=== PATIENT | female | born 1950 | race Caucasian/White ===

== ENCOUNTER 2020-09-21 12:21 | Emergency (ER) | payer MEDICARE, BC ==
--- NOTE | 2020-09-21 12:53 | EDM.PDOC ---
ED HPI GENERAL MEDICAL PROBLEM - General Chief Complaint: Respiratory Problem Stated Complaint: CHEST PAIN Time Seen by Provider: 09/21/20 12:53 Source of Information: Reports: Patient History Limitations: Reports: No Limitations - History of Present Illness INITIAL COMMENTS - FREE TEXT/NARRATIVE: pt gives a 10 day history of mild rt chest discomfort wioth deep breathing only in the am. Today she got up and the pain was persistent with deep breathing. She has no left sided opain. t Onset: Gradual Duration: Day(s): Location: Reports: Chest Associated Symptoms: Reports: Chest Pain, Other (pain with deep breathing. ) - Related Data Allergies Allergy/AdvReac Type Severity Reaction Status Date / Time No Known Allergies Allergy Verified 09/21/20 12:33 Home Meds: Home Meds Furosemide 1 tab PO DAILY 09/21/20 [History] Venlafaxine HCl [Venlafaxine ER] 1 tab PO BEDTIME 09/21/20 [History] hydroCHLOROthiazide [Hydrochlorothiazide] 1 tab PO DAILY 09/21/20 [History] Past Medical History Cardiovascular History: Reports: Hypertension Social & Family History - Tobacco Use Tobacco Use Status *Q: Never Tobacco User ED ROS GENERAL - Review of Systems Review Of Systems: See Below Constitutional: Reports: No Symptoms HEENT: Reports: No Symptoms Respiratory: Reports: Pleuritic Chest Pain Cardiovascular: Reports: No Symptoms Endocrine: Reports: No Symptoms GI/Abdominal: Reports: No Symptoms : Reports: No Symptoms Musculoskeletal: Reports: Other (pain in left chest. ) Skin: Reports: No Symptoms ED EXAM, GENERAL - Physical Exam Exam: See Below Free Text/Narrative:: pt arrived with persistent rt sided pain with deep breathing. Exam Limited By: No Limitations General Appearance: Alert, Anxious Ears: Normal TMs Nose: Normal Inspection Throat/Mouth: Normal Inspection Head: Atraumatic Neck: Normal Inspection Respiratory/Chest: Splinting, Other (pt hurts with deep breathing. She is also tender in the intercostal muscles. ) Cardiovascular: Regular Rate, Rhythm GI/Abdominal: Soft, Non-Tender (Female) Exam: Deferred Rectal (Female) Exam: Deferred Back Exam: Normal Inspection Extremities: Normal Inspection Neurological: Alert, Oriented, Normal Cognition Psychiatric: Anxious Course - Vital Signs Last Recorded V/S: Last Vital Signs Temp 37.5 C 09/21/20 12:42 Pulse 94 09/21/20 12:42 Resp 14 09/21/20 12:42 BP 139/84 09/21/20 12:42 Pulse Ox 96 09/21/20 12:42 - Orders/Labs/Meds Orders: Active Orders 24 hr Category Date Time Status Chest 2V [CR] Stat Exams 09/21/20 12:52 Taken Labs: Laboratory Tests 09/21/20 09/21/20 09/21/20 Range/Units 12:56 12:56 13:23 WBC 6.6 (4.5-11.0) K/uL RBC 5.31 (3.30-5.50) M/uL Hgb 15.7 H (12.0-15.0) g/dL Hct 46.3 (36.0-48.0) % MCV 87 (80-98) fL MCH 30 (27-31) pg MCHC 34 (32-36) % Plt Count 257 (150-400) K/uL Neut % (Auto) 59 (36-66) % Lymph % (Auto) 29 (24-44) % [place] % (Auto) 10 H (2-6) % Eos % (Auto) 1 L (2-4) % Baso % (Auto) 1 (0-1) % D-Dimer, Quantitative (0.0-500.0) ng/mL Sodium 140 (140-148) mmol/L Potassium 3.6 (3.6-5.2) mmol/L Chloride 101 (100-108) mmol/L Carbon Dioxide 26 (21-32) mmol/L Anion Gap 13.1 (5.0-14.0) mmol/L BUN 12 (7-18) mg/dL Creatinine 1.0 (0.6-1.0) mg/dL Est Cr Clr Drug Dosing 41.40 mL/min Estimated GFR (MDRD) 55 L (>60) Glucose 96 (74-106) mg/dL Calcium 9.4 (8.5-10.1) mg/dL Total Bilirubin 0.8 (0.2-1.0) mg/dL AST 17 (15-37) U/L ALT 22 (12-78) U/L Alkaline Phosphatase 70 (46-116) U/L C-Reactive Protein < 0.05 (0.0-0.3) mg/dL Total Protein 7.3 (6.4-8.2) g/dL Albumin 3.7 (3.4-5.0) g/dL Globulin 3.6 H (2.3-3.5) g/dL Albumin/Globulin Ratio 1.0 L (1.2-2.2) 09/21/20 Range/Units 13:24 WBC (4.5-11.0) K/uL RBC (3.30-5.50) M/uL Hgb (12.0-15.0) g/dL Hct (36.0-48.0) % MCV (80-98) fL MCH (27-31) pg MCHC (32-36) % Plt Count (150-400) K/uL Neut % (Auto) (36-66) % Lymph % (Auto) (24-44) % [place] % (Auto) (2-6) % Eos % (Auto) (2-4) % Baso % (Auto) (0-1) % D-Dimer, Quantitative 176.80 (0.0-500.0) ng/mL Sodium (140-148) mmol/L Potassium (3.6-5.2) mmol/L Chloride (100-108) mmol/L Carbon Dioxide (21-32) mmol/L Anion Gap (5.0-14.0) mmol/L BUN (7-18) mg/dL Creatinine (0.6-1.0) mg/dL Est Cr Clr Drug Dosing mL/min Estimated GFR (MDRD) (>60) Glucose (74-106) mg/dL Calcium (8.5-10.1) mg/dL Total Bilirubin (0.2-1.0) mg/dL AST (15-37) U/L ALT (12-78) U/L Alkaline Phosphatase (46-116) U/L C-Reactive Protein (0.0-0.3) mg/dL Total Protein (6.4-8.2) g/dL Albumin (3.4-5.0) g/dL Globulin (2.3-3.5) g/dL Albumin/Globulin Ratio (1.2-2.2) Meds: Medications Discontinued Medications Generic Name Dose Route Start Last Admin Trade Name Freq PRN Reason Stop Dose Admin Ketorolac Tromethamine 60 mg 09/21/20 13:24 09/21/20 13:34 Toradol IM 09/21/20 13:25 60 mg ONETIME ONE Administration - Re-Assessments/Exams Free Text/Narrative Re-Assessment/Exam: 09/21/20 14:01 pt had a normal chest xray, normal ddimer and normal labs. Departure - Departure Time of Disposition: 13:55 Disposition: Home, Self-Care 01 Condition: Fair Clinical Impression: Pleuritic chest pain - Discharge Information Referrals: Zack Medrano MD [Primary Care Provider] - Forms: ED Department Discharge Care Plan Goals: moist heat to the rt chest, tylenol as needed for pain, motrin 600mg tid. If persitent pain see Dr Anand. Sepsis Event Note (ED) - Evaluation Sepsis Screening Result: No Definite Risk - Focused Exam Vital Signs: Vital Signs Temp Pulse Resp BP Pulse Ox 09/21/20 12:42 37.5 C 94 14 139/84 96 - My Orders Last 24 Hours: My Active Orders 09/21/20 12:52 Chest 2V [CR] Stat - Assessment/Plan Last 24 Hours: My Active Orders 09/21/20 12:52 Chest 2V [CR] Stat
[2020-09-21] MEDS ORDERED: Ketorolac 60 MG/2 ML SDV IM ONE (13:24)
--- NOTE | 2020-09-24 10:26 | CR ---
CHEST: 2 view CLINICAL HISTORY:Right chest pain COMPARISON:None FINDINGS: The heart size, pulmonary vascularity and hilar structures are normal. No infiltrate effusion or pneumothorax is seen. IMPRESSION: No acute cardiopulmonary process.
== END 2020-09-21 15:00 | disposition home or self-care (01) ==
LOC: JP.ED 12:21
DX: R07.81 Pleurodynia (principal); I10 Essential (primary) hypertension; Z79.899 Other long term (current) drug therapy
CPT/HCPCS: 36415; 71046; 71046-26; 80053; 85025; 85379; 86140; 96372; 99282; 99284-25; J1885

== ENCOUNTER 2021-04-01 01:27 | Emergency (ER) | payer MEDICARE, BC ==
--- NOTE | 2021-04-01 01:44 | EDM.PDOC ---
ED HPI GENERAL MEDICAL PROBLEM - General Chief Complaint: Chest Pain Stated Complaint: CHEST PAIN Time Seen by Provider: 04/01/21 01:36 Source of Information: Reports: Patient History Limitations: Reports: No Limitations - History of Present Illness INITIAL COMMENTS - FREE TEXT/NARRATIVE: Анна is a 70 year-old female presenting to the ED for evaluation of acute onset of chest pain radiating down her left arm that woke her from sleep about 12:00AM tonight. She states that she was sleeping on her left side and started to develop pressure in her chest, but dull ache but not like somebody sitting on her chest. The pain started to radiate down her left arm and she got up. She took 8 aspirin and 81 mg tablets and the pain subsided, but now presents concerned for what caused the pain. She denies having this pain before. She has had reflux in the past and stated that this felt different. It was not associated with any shortness of breath but the patient did have some nausea. She denies any diaphoresis. Pain lasted about 30 minutes before subsiding. She does have a history of hypertension for which she takes hydrochlorothiazide 25 mg daily. 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 She denies any fever, chills, cough, sore throat, diarrhea or constipation. Left Arm Pain Score (Numeric/FACES): 3 - Related Data Allergies Allergy/AdvReac Type Severity Reaction Status Date / Time No Known Allergies Allergy Verified 04/01/21 01:45 Home Meds: Home Meds Furosemide 1 tab PO DAILY 09/21/20 [History] Venlafaxine HCl [Venlafaxine ER] 1 tab PO BEDTIME 09/21/20 [History] hydroCHLOROthiazide [Hydrochlorothiazide] 1 tab PO DAILY 09/21/20 [History] Past Medical History Cardiovascular History: Reports: Hypertension ED ROS GENERAL - Review of Systems Review Of Systems: See Below Constitutional: Reports: No Symptoms HEENT: Reports: No Symptoms Respiratory: Reports: No Symptoms Cardiovascular: Reports: No Symptoms Endocrine: Reports: No Symptoms GI/Abdominal: Reports: No Symptoms : Reports: No Symptoms Musculoskeletal: Reports: No Symptoms Skin: Reports: No Symptoms Neurological: Reports: No Symptoms Psychiatric: Reports: No Symptoms Hematologic/Lymphatic: Reports: No Symptoms Immunologic: Reports: No Symptoms ED EXAM, GENERAL - Physical Exam Exam: See Below Exam Limited By: No Limitations General Appearance: Alert, No Apparent Distress Eye Exam: Bilateral Eye: EOMI, PERRL Throat/Mouth: Normal Inspection, Normal Lips, Normal Oropharynx, Normal Voice, No Airway Compromise Head: Atraumatic, Normocephalic Neck: Normal Inspection, Supple, Non-Tender, Full Range of Motion Respiratory/Chest: No Respiratory Distress, Lungs Clear, Normal Breath Sounds Cardiovascular: Normal Peripheral Pulses, Regular Rate, Rhythm, No Murmur Peripheral Pulses: 2+: Radial (L), Radial (R), Posterior Tibial (L), Posterior Tibial (R) GI/Abdominal: Normal Bowel Sounds, Soft, Non-Tender Back Exam: Normal Inspection Extremities: Normal Inspection, Normal Range of Motion, Normal Capillary Refill Neurological: Alert, Oriented, Normal Cognition, No Motor/Sensory Deficits Psychiatric: Normal Affect, Normal Mood Skin Exam: Warm, Dry, Intact, Normal Color #1 Interpretation EKG Date: 04/01/21 Time: 01:57 Rhythm: NSR Rate (Beats/Min): 62 [place]: Normal P-Wave: Enlarged (Left atrial enlargement) QRS: Normal ST-T: Normal QT: Normal Comparison: NA - No Prior EKG Course - Vital Signs Last Recorded V/S: Last Vital Signs Temp 36.7 C 04/01/21 01:44 Pulse 94 04/01/21 01:44 Resp 16 04/01/21 01:44 BP 134/80 04/01/21 01:44 Pulse Ox 94 L 04/01/21 01:44 - Orders/Labs/Meds Orders: Active Orders 24 hr Category Date Time Status EKG Documentation Completion [RC] ASDIRECTED Care 04/01/21 01:37 Active EKG 12 Lead [EK] Routine Ther 04/01/21 01:37 Ordered Labs: Laboratory Tests 04/01/21 04/01/21 04/01/21 Range/Units 01:35 01:35 01:35 WBC 7.1 (4.5-11.0) K/uL RBC 4.89 (3.30-5.50) M/uL Hgb 14.4 (12.0-15.0) g/dL Hct 41.4 (36.0-48.0) % MCV 85 (80-98) fL MCH 29 (27-31) pg MCHC 35 (32-36) % Plt Count 209 (150-400) K/uL Neut % (Auto) 55.3 (36-66) % Lymph % (Auto) 31.6 (24-44) % [place] % (Auto) 10.7 H (2-6) % Eos % (Auto) 2.0 (2-4) % Baso % (Auto) 0.4 (0-1) % D-Dimer, Quantitative 291.88 (0.0-500.0) ng/mL Sodium 141 (140-148) mmol/L Potassium 3.1 L (3.6-5.2) mmol/L Chloride 103 (100-108) mmol/L Carbon Dioxide 28 (21-32) mmol/L Anion Gap 13.1 (5.0-14.0) mmol/L BUN 18 (7-18) mg/dL Creatinine 1.0 (0.6-1.0) mg/dL Est Cr Clr Drug Dosing 41.40 mL/min Estimated GFR (MDRD) 55 L (>60) Glucose 103 (74-106) mg/dL Calcium 8.5 (8.5-10.1) mg/dL Total Bilirubin 0.3 D (0.2-1.0) mg/dL AST 23 (15-37) U/L ALT 32 (12-78) U/L Alkaline Phosphatase 87 (46-116) U/L Troponin I < 0.017 (0.000-0.056) ng/mL Total Protein 6.5 (6.4-8.2) g/dL Albumin 3.2 L (3.4-5.0) g/dL Globulin 3.3 (2.3-3.5) g/dL Albumin/Globulin Ratio 1.0 L (1.2-2.2) - Re-Assessments/Exams Free Text/Narrative Re-Assessment/Exam: 04/01/21 02:38 viewed the EKG which shows normal sinus rhythm with left atrial enlargement. There is no evidence for acute coronary injury or ischemia. I r eviewed the patient's labs showing a normal CBC, comprehensive metabolic panel except for a potassium of 3.1, D-dimer, and troponin I. The patient does not have any significant history for coronary artery disease with the exception of hypertension. She does not get any chest pain with vigorous exercise and remains very active. The likelihood that this was a transient coronary ischemic event is fairly low. The symptoms seem to resolve quickly after taking aspirin, albeit an excessive amount of aspirin. I do think that we can probably safely discharge her home at this time with instructions to return if any recurrence of her symptoms. I do think that anxiety played a little role in her symptoms tonight. Departure - Departure Time of Disposition: 02:40 Disposition: Home, Self-Care 01 Clinical Impression: Left-sided chest pain Instructions: Nonspecific Chest Pain, Adult, [id number] Referrals: PCP,None [Primary Care Provider] - Forms: ED Department Discharge Care Plan Goals: Your work-up today has not demonstrated any evidence for this pain coming from the heart. I do think that your likelihood of having an ischemic event is low especially given your level of activity throughout the day. I feel comfortable in letting you go home with the caveat of any return of pain you should return for reevaluation. Sepsis Event Note (ED) - Focused Exam Vital Signs: Vital Signs Temp Pulse Resp BP Pulse Ox 04/01/21 01:44 36.7 C 94 16 134/80 94 L - Problem List & Annotations (1) Left-sided chest pain SNOMED Code(s): 222862436 Code(s): R07.9 - CHEST PAIN, UNSPECIFIED Status: Acute Priority: High Current Visit: Yes - Problem List Review Problem List Initiated/Reviewed/Updated: Yes - My Orders Last 24 Hours: My Active Orders 04/01/21 01:37 EKG Documentation Completion [RC] ASDIRECTED EKG 12 Lead [EK] Routine - Assessment/Plan Last 24 Hours: My Active Orders 04/01/21 01:37 EKG Documentation Completion [RC] ASDIRECTED EKG 12 Lead [EK] Routine
== END 2021-04-01 03:09 | disposition home or self-care (01) ==
LOC: JP.ED 01:27
DX: R07.89 Other chest pain (principal); I10 Essential (primary) hypertension; Z79.899 Other long term (current) drug therapy
CPT/HCPCS: 36415; 80053; 84484; 85025; 85379; 93005; 99285-25

== ENCOUNTER 2022-09-24 07:08 | Day surgery (SDC) | payer MEDICARE, BC ==
[~2022-09-24 07:08] MED LIST: Bupivacaine 0.5% 50 ML MDV ONE
[2022-09-24] MEDS ORDERED: Midazolam 1 MG/ML 2 ML SDV ONE (07:25)
[2022-09-24] MEDS ORDERED: fentaNYL 100 MCG/2 ML SDV ONE (07:25)
[2022-09-24] MEDS ORDERED: Bupivacaine 0.5% 30 ML SDV ONE (07:26)
[2022-09-24] MEDS ORDERED: Propofol 200 MG/20 ML SDV ONE ×2 (07:26→08:18)
[2022-09-24] MEDS ORDERED: fentaNYL 50 MCG/ML SDV ONE (07:56)
[2022-09-24] MEDS ORDERED: Lactated Ringers 1,000 ML IV SCH (09:15)
[2022-09-24] MEDS ORDERED: Nozin Nasal Sanitizer NASBOTH ONE (09:15)
[2022-09-24] MEDS ORDERED: ceFAZolin 2 GM in Sodium Chloride 0.9% 100 ML IV ONE (09:30)
[2022-09-24] MEDS ORDERED: ceFAZolin 2 GM in Sodium Chloride 0.9% 50 ML IV ONE (09:30)
[2022-09-24] MEDS ORDERED: Lactated Ringers 1,000 ML ONE (10:15)
[2022-09-24] MEDS ORDERED: Acetaminophen/oxyCODONE 325-5 MG Tab PO PRN ×2 (11:00→11:01)
== END 2022-09-24 12:30 | disposition home or self-care (01) ==
LOC: JP.SDS 07:08
PROVIDERS: ATTEND Specialist
DX: S46.111A Strain of muscle, fascia and tendon of long head of biceps, right arm, initial encounter (principal); M75.41 Impingement syndrome of right shoulder; I10 Essential (primary) hypertension; E78.00 Pure hypercholesterolemia, unspecified; Z98.890 Other specified postprocedural states; Z79.899 Other long term (current) drug therapy; Z91.048 Other nonmedicinal substance allergy status
CPT/HCPCS: 36415; 80048; 85027; A9270-GY; C1713; J0690; J2250; J2704; J3010; J3490; J7120

== ENCOUNTER 2023-04-23 09:16 | Day surgery (SDC) | payer MEDICARE, BC ==
[~2023-04-23 09:16] MED LIST changes: -Bupivacaine 0.5% 50 ML MDV ONE; +Propofol 200 MG/20 ML SDV ONE; +fentaNYL 50 MCG/ML SDV ONE
[2023-04-23] MEDS: Dextrose 5%-Lactated Ringers 1,000 ML IV SCH (09:57)
== END 2023-04-23 14:03 | disposition home or self-care (01) ==
LOC: JP.SDS 09:16
PROVIDERS: ATTEND Surgery
DX: R19.5 Other fecal abnormalities (principal); K64.9 Unspecified hemorrhoids; I10 Essential (primary) hypertension; E78.00 Pure hypercholesterolemia, unspecified; Z91.048 Other nonmedicinal substance allergy status; Z79.899 Other long term (current) drug therapy
CPT/HCPCS: 45378; J2704; J3010; J7121

== ENCOUNTER 2024-06-10 12:35 | Emergency (ER) | payer MEDICARE, BC | END 2024-06-10 13:10 | disposition home or self-care (01) | LOC: JP.ED 12:35 | DX: S61.012A Laceration without foreign body of left thumb without damage to nail, initial encounter (principal); I10 Essential (primary) hypertension; M19.90 Unspecified osteoarthritis, unspecified site; Z91.048 Other nonmedicinal substance allergy status; Z79.82 Long term (current) use of aspirin; Z79.899 Other long term (current) drug therapy; W27.4XXA Contact with kitchen utensil, initial encounter | CPT/HCPCS: 12001; 99282 ==